=== PATIENT | female | born 1980 | race Caucasian/White ===

== ENCOUNTER 2024-03-25 11:11 | Emergency (ER) | payer OTHER ==
[~2024-03-25] VITALS: Ht 167.6 cm; Wt 86.2 kg
[2024-03-25 11:17] VITALS: PULSE 92; RESP 19; TEMP 98.3
[2024-03-25 11:58] LABS: AMPHETAMINES SCREEN,URINE NEGATIVE (NEGATIVE); BENZODIAZEPINES SCREEN,URINE NEGATIVE (NEGATIVE); CLARITY,URINE CLOUDY (CLEAR); COLOR,URINE YELLOW (YELLOW); GLUCOSE, URINE NEGATIVE (NEGATIVE); KETONES,URINE NEGATIVE (NEGATIVE); LEUKOCYTE ESTERASE ,URINE NEGATIVE (NEGATIVE); NITRITE,URINE NEGATIVE (NEGATIVE); OPIATES SCREEN,URINE NEGATIVE (NEGATIVE); PH,URINE 6 (5 - 7); PHENCYCLIDINE SCREEN,URINE NEGATIVE (NEGATIVE); PROTEIN,URINE DIPSTICK NEGATIVE (NEGATIVE)
[2024-03-25 11:59] LABS: BILIRUBIN,URINE NEGATIVE (NEGATIVE); CANNABINOIDS SCREEN,URINE POSITIVE (NEGATIVE); METHADONE SCREEN, URINE NEGATIVE (NEGATIVE); PREGNANCY TEST, URINE NEGATIVE (NEGATIVE); URINE UROBILINOGEN 0.2 mg/dL (0.2 - 1)
[2024-03-25 12:07] LABS: BASOPHILS # (AUTO) 0.1 (0.0-0.1); BASOPHILS % 0.9 % (0.0-1.0); EOSINOPHILS # (AUTO) 0.1 (0.0-0.4); EOSINOPHILS % 1.2 % (0.0-6.0); HEMATOCRIT 44.9 % (34.2-44.1); HEMOGLOBIN 14.2 g/dL (12.0-16.0); LYMPHOCYTES # (AUTO) 2.1 (1.0-3.2); LYMPHOCYTES % 20.4 % (18.0-39.1); MEAN CORPUSCULAR HGB CONC 31.6 g/dL (31-35); MEAN CORPUSCULAR VOLUME 91.6 fL (81-99); MONOCYTES # (AUTO) 0.9 (0.2-0.8); MONOCYTES % 8.4 % (4.4-11.3); NEUTROPHILS # (AUTO) 7.1 (2.1-6.9); NEUTROPHILS % 68.8 % (38.7-80.0); PLATELET COUNT 273 x10e3/uL (140-360); RED CELL DISTRIBUTION WIDTH 14.8 % (11.7-14.4); WHITE BLOOD COUNT 10.28 x10e3/uL (4.8-10.8)
[2024-03-25] MEDS ORDERED: PROCHLORPERAZINE EDISYLATE 5 MG/ML VIAL IV ONE (12:15)
[2024-03-25 12:19] LABS: BACTERIA,URINE RARE /HPF; EPITHELIAL CELLS,URINE MODERATE /LPF; RBC,URINE >50 /HPF (0-5); WBC,URINE (MAN) 0-5 /HPF (0-5)
[2024-03-25 12:21] LABS: ALBUMIN 4.2 g/dL (3.5-5.0); ALBUMIN/GLOBULIN RATIO 1.2 (0.8-2.0); ANION GAP 13.4 mmol/L (8-16); BILIRUBIN,TOTAL 0.4 mg/dL (0.2-1.2); CALCIUM 9.5 mg/dL (8.4-10.2); CREATININE, SERUM 0.75 mg/dL (0.57-1.11); TOTAL PROTEIN 7.6 g/dL (6.5-8.1)
[2024-03-25 12:24] LABS: POTASSIUM 3.4 mmol/L (3.5-5.1)
[2024-03-25] MEDS: DEXTROSE 50% SYRINGE 50 ML IV STA (12:42)
[2024-03-25] MEDS ORDERED: PROCHLORPERAZINE EDISYLATE INJ 10 MG in Sodium Chloride 0.9% 50ML 50 ML IV ONE (12:50)
[2024-03-25] MEDS: DIPHENHYDRAMINE HCL INJ 50 MG/ML VIAL IV ONE (13:19)
[2024-03-25] MEDS: SODIUM CHLORIDE 0.9% 1000ML 1,000 ML IV ONE (13:19)
[2024-03-25] MEDS: KETOROLAC TROMETHAMINE 30 MG/ML VIAL IV STA (13:20)
[2024-03-25] MEDS: ACETAMINOPHEN 325 MG TAB PO ONE (13:20)
[2024-03-25 15:51] VITALS: BP 131/74; PULSE 54; RESP 16; O2SAT 100
== END 2024-03-25 15:56 | disposition home or self-care (01) ==
LOC: ER 11:17
DX: R51.9 Headache, unspecified (principal); R68.84 Jaw pain
CPT/HCPCS: 36415; 70450; 80053; 80307; 81001; 81025; 82948; 85025; 99284; J1200; J1885; J7030; J7799